=== PATIENT | female | born 1985 | race Caucasian/White ===

== ENCOUNTER 2021-08-05 18:05 | Emergency (ER) | payer BC ==
[~2021-08-05] VITALS: Ht 175.3 cm; Wt 122.5 kg
[~2021-08-05 18:05] MED LIST: IBUPROFEN600 MG PO; NORCO 5-325 TA1 EACH PO
[2021-08-05] MEDS ORDERED: PROZAC40 MG PO (18:22)
[2021-08-05] MEDS ORDERED: CLONAZEPAM2 MG (18:22)
[2021-08-05] MEDS ORDERED: BUSPIRONE HCL15 MG PO (18:22)
[2021-08-05] MEDS ORDERED: MELOXICAM7.5 MG PO (18:22)
[2021-08-05] MEDS ORDERED: GABAPENTIN300 MG PO (18:23)
[2021-08-05] MEDS ORDERED: MOBIC15 MG PO (20:11)
[2021-08-05] MEDS ORDERED: CYCLOBENZAPRINE10 MG PO (20:11)
--- OUTSIDE RECORDS SUMMARY | 2021-08-06 02:24 | XMS ---
PreManage Notification: KAYLA MERA Security [employer] Services Assistant Events No recent Security Events currently on file CRITERIA MET - [facility] PROVIDERS JONNIE ELLISON Physician Current PHONE: Unknown ADRIEL BONNER [facility], [place] Current PHONE: Unknown Z[facility] has no Care Guidelines for this patient. Anastacio VISIT COUNT (12 MO.) Edmund Gan TOTAL 1 NOTE: Visits indicate total known visits. ED/UCC VISIT TRACKING (12 MO.) 08/05/2021 18:[address] [facility] [place] TYPE: Emergency COMPLAINT: - FALL, HEAD/KNEE INJURY INPATIENT VISIT TRACKING (12 MO.) No inpatient visits to display in this time frame [email or web address]
== END 2021-08-05 20:35 | disposition home or self-care (01) ==
LOC: ED 18:05
DX: S16.1XXA Strain of muscle, fascia and tendon at neck level, initial encounter (principal); S83.91XA Sprain of unspecified site of right knee, initial encounter; F17.200 Nicotine dependence, unspecified, uncomplicated; Z79.899 Other long term (current) drug therapy; W01.10XA Fall on same level from slipping, tripping and stumbling with subsequent striking against unspecified object, initial encounter; Y93.01 Activity, walking, marching and hiking
CPT/HCPCS: 72040; 73560; 99283-25